=== PATIENT | female | born 2000 | race African-American/Black ===

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

== ENCOUNTER 2023-11-15 08:37 | Emergency (ER) | payer MEDICAID ==
[~2023-11-15] VITALS: Ht 157.5 cm; Wt 82.0 kg
[2023-11-15 08:46] VITALS: O2SAT 100
[2023-11-15] MEDS ORDERED: TOPUD MT (09:14)
[2023-11-15] MEDS: ACETAMINOPHEN 500MG TABLET PO ONE (09:25)
[2023-11-15 09:33] VITALS: BP 105/52; PULSE 72; RESP 13; TEMP 99.5
== END 2023-11-15 10:03 | disposition home or self-care (01) ==
LOC: ER 08:37
DX: J06.9 Acute upper respiratory infection, unspecified (principal)
CPT/HCPCS: 93005; 99283

== ENCOUNTER 2024-02-21 14:05 | Emergency (ER) | payer MEDICAID ==
[~2024-02-21] VITALS: Ht 160 cm; Wt 81.0 kg
[~2024-02-21 14:05] MED LIST: TOPUD MT
[2024-02-21 14:52] VITALS: BP 124/73; PULSE 110; RESP 18; TEMP 98.9
[2024-02-21] MEDS: DEXAMETHASONE 10 MG/ML VIAL PO ONE (16:53)
[2024-02-21] MEDS ORDERED: P-EP-312 MT (18:06)
[2024-02-21] MEDS ORDERED: GUAI-450 MT (18:06)
== END 2024-02-21 18:44 | disposition home or self-care (01) ==
LOC: ER 14:05
DX: J06.9 Acute upper respiratory infection, unspecified (principal); Z20.822 Contact with and (suspected) exposure to COVID-19
CPT/HCPCS: 81025; 87430; 87070; 87804 ×2; 99283; 87426; J1100; Z7610

== ENCOUNTER 2025-02-25 17:28 | Emergency (ER) | payer MEDICAID ==
[~2025-02-25] VITALS: Ht 162.6 cm; Wt 98.0 kg
[~2025-02-25 17:28] MED LIST changes: +GUAI-450 MT; +P-EP-312 MT
[2025-02-25 17:39] VITALS: O2SAT 100
[2025-02-25 20:03] VITALS: BP 131/89; PULSE 80; RESP 18; TEMP 36.8; O2SAT 100
[2025-02-25] MEDS ORDERED: IBUP-2029 MT (20:22)
== END 2025-02-25 20:00 | disposition home or self-care (01) ==
LOC: ER 17:28
DX: M25.561 Pain in right knee (principal); Z79.899 Other long term (current) drug therapy
CPT/HCPCS: 99284; 73562; 73590; A6449